=== PATIENT | male | born 1940 | race Caucasian/White ===

== ENCOUNTER → 2017-05-19 | Outpatient (CLI) | payer MEDICARE, BC, SELFPAY | PROVIDERS: Family Provider Emergency Medicine; Visit Provider Internal Medicine | DX: I20.8 Other forms of angina pectoris (principal); I10 Essential (primary) hypertension; Z01.818 Encounter for other preprocedural examination | CPT/HCPCS: 93306 ==

== ENCOUNTER → 2017-09-23 10:32 | Outpatient (CLI) | payer MEDICARE, SELFPAY ==
[2017-09-23 12:18] LABS: Calcium 8.6 mg/dL (8.5-10.1); Free T4 (Free Thyroxine) 1.22 ng/dl (0.76-1.46); Thyroid Stimulating Hormone 2.25 uIU/ml (0.358-3.740)
== END ==
PROVIDERS: Visit Provider Otolaryngology
DX: E04.1 Nontoxic single thyroid nodule (principal); E07.9 Disorder of thyroid, unspecified; R42 Dizziness and giddiness; H69.80 Other specified disorders of Eustachian tube, unspecified ear
CPT/HCPCS: 36415; 82310; 84439; 84443

== ENCOUNTER → 2017-10-03 09:01 | Outpatient (CLI) | payer MEDICARE, BC, SELFPAY ==
--- NOTE | 2017-10-03 09:04 | US_ITS ---
US thyroid HISTORY: Follow-up thyroid nodules ITS.REASON: thyroid nodule ORDERING PHYSICIAN: Mio Rios MD PATIENT AGE: 76 years COMPARISON: 09/23/2016 FINDINGS: The right lobe is 4 x 1.4 x 1.9 cm. There is an isoechoic nodule in the upper pole at 4 mm unchanged. The left lobe is 4.2 x 1.9 x 2.3 cm. In the upper pole there is a 8 not significantly changed. A 5 mm isoechoic nodule present in the upper pole as well. In the mid polar region there is a 2.5 x 1.3 cm isoechoic solid appearing nodule which is fairly well-circumscribed previously 2 x 1 cm. An additional 1.6 cm solid appearing isoechoic nodule present in the lower pole. This is not significant change. IMPRESSION: Multiple left-sided solid thyroid nodules one of which is slightly bigger measuring 2.5 x 1.3 cm. No change isoechoic 4 mm nodule in the right
--- NOTE | 2017-10-03 09:04 | US_ITS ---
US biopsy guidance HISTORY: Solid thyroid nodule on the left ITS.REASON: thyroid nodule ORDERING PHYSICIAN: Mio Rios MD PATIENT AGE: 76 years TECHNIQUE: Following obtaining informed consent, using aseptic technique and local anesthesia with buffered lidocaine, fine-needle aspiration was performed of the nodule of interest using sonographic guidance. 3 passes were made into the nodule with a 25-gauge needle. Specimen was given to cytology. The patient tolerated the procedure well without evidence of immediate complications and left the ultrasound suite in stable condition. CYTOLOGY:Pending IMPRESSION: Uneventfully fine-needle aspiration with thyroid gland on the left. Cytology pending
== END ==
PROVIDERS: PCP Emergency Medicine; Visit Provider Otolaryngology
DX: E04.1 Nontoxic single thyroid nodule (principal); R42 Dizziness and giddiness; E07.9 Disorder of thyroid, unspecified; H69.90 Unspecified Eustachian tube disorder, unspecified ear
CPT/HCPCS: 10022; 76536; 76942; 88173

== ENCOUNTER → 2018-09-18 17:42 | Outpatient (CLI) | payer MEDICARE, BC, SELFPAY ==
[2018-09-18 18:56] LABS: Alanine Aminotransferase 23 U/L (12-78); Albumin Level 4.1 gm/dL (3.4-5.0); Albumin/Globulin Ratio 1.2 (1.1-1.8); Alkaline Phosphatase 71 U/L (46-116); Anion Gap 15.2 mEq/L (5-15); Aspartate Amino Transferase 13 U/L (15-37); Bilirubin,Total 0.5 mg/dL (0.2-1.0); Blood Urea Nitrogen 19 mg/dL (7-18); Carbon Dioxide 28 mmol/L (21.0-32.0); Chloride 104 mmol/L (98-107); Creatinine,Serum 1.09 mg/dL (0.70-1.30); Estimated Glomerular Filt Rate 66 ml/min (>60); GFR (African American) 80 ML/MIN (>60); Globulin 3.4 gm/dl (1.3-3.2); Glucose 94 mg/dL (74-106); Potassium 4.2 mmoL/L (3.5-5.1); Sodium 143 mmol/L (136-145); Total Protein,Serum 7.5 gm/dL (6.4-8.2)
[2018-09-18 19:07] LABS: Basophils # 0.1 K/mm3 (0-0.2); Basophils % 1.2 % (0.1-2.0); Eosinophils # 0.1 K/mm3 (0.0-0.4); Eosinophils % 1.5 % (0.1-12.0); Hematocrit 46.3 % (42.0-52.0); Hemoglobin 15.7 g/dL (14.1-18.0); Lymphocytes # 2.8 K/mm3 (0.7-4.5); Lymphocytes % 44.6 % (10-50); Mean Corpuscular Hemoglobin 30.8 pg (27.0-31.2); Mean Corpuscular Volume 90.6 fl (80-94); Mean Platelet Volume 8.5 fl (7.4-10.4); Monocytes # 0.4 K/mm3 (0.1-1.0); Neutrophils # 2.9 K/mm3 (1.8-7.8); Neutrophils % 46.8 % (37.0-80.0); Platelet Count 231 K/mm3 (142-424); Red Blood Count 5.11 M/mm3 (4.60-6.20); Red Cell Distribution Width 13.9 % (11.5-17.5); White Blood Count 6.3 K/mm3 (4.8-10.8)
== END ==
PROVIDERS: Visit Provider Emergency Medicine
DX: R39.9 Unspecified symptoms and signs involving the genitourinary system (principal); I10 Essential (primary) hypertension; R31.9 Hematuria, unspecified
CPT/HCPCS: 80053; 85025; 87086

== ENCOUNTER → 2019-01-15 13:27 | Outpatient (CLI) | payer MEDICARE, BC, SELFPAY ==
[2019-01-15 18:14] LABS: Free T4 (Free Thyroxine) 1.26 ng/dl (0.76-1.46); Thyroid Stimulating Hormone 1.74 uIU/ml (0.358-3.740)
== END ==
PROVIDERS: PCP Emergency Medicine; Visit Provider Otolaryngology
DX: E04.1 Nontoxic single thyroid nodule (principal)
CPT/HCPCS: 36415; 84439; 84443

== ENCOUNTER → 2019-01-17 13:27 | Outpatient (CLI) | payer MEDICARE, BC, SELFPAY ==
[2019-01-17 14:29] LABS: Erythrocyte Sedimentation Rate 31 mm/hr (0-20)
== END ==
PROVIDERS: Visit Provider Emergency Medicine
DX: R42 Dizziness and giddiness (principal)
CPT/HCPCS: 85651

== ENCOUNTER → 2019-01-18 09:36 | Outpatient (CLI) | payer MEDICARE, BC, SELFPAY ==
--- NOTE | 2019-01-18 09:40 | US_ITS ---
PROCEDURE: US THYROID CLINICAL INDICATION: Follow-up thyroid nodule COMPARISON: THY US THYROID from 09/23/2016 THY US thyroid from 10/03/2017 FINDINGS: Right lobe: 4 x 1.3 x 1.9 cm. 2 mm isoechoic nodule mid polar region Left lobe: 5 x 2 x 2.2 cm. Five mm slightly hypoechoic nodule well-circumscribed upper pole slightly smaller. 2.4 x 1.6 cm solid-appearing isoechoic nodule in the lower pole unchanged considering the difference in the way that the nodule is measured. This may actually be 2 nodules combined Isthmus: Unremarkable Additional findings: IMPRESSION: No change enlarged left lobe of the thyroid gland with multiple nodules Dictated by: Tono Parkinson MD 01/18/2019 17:22 Signed by: <Electronically signed by Tono Parkinson MD in [place]> 01/18/2019 17:22
== END ==
PROVIDERS: PCP Emergency Medicine; Visit Provider Otolaryngology
DX: E04.1 Nontoxic single thyroid nodule (principal)
CPT/HCPCS: 76536

== ENCOUNTER → 2019-04-12 14:34 | Outpatient (CLI) | payer MEDICARE, BC, SELFPAY ==
--- NOTE | 2019-04-12 14:36 | US_ITS ---
PROCEDURE: US THYROID CLINICAL INDICATION: thyroid nodule Follow-up thyroid nodules COMPARISON: THY US THYROID from 09/23/2016 US THYROID from 01/18/2019 FINDINGS: Right lobe: 4.2 x 1.7 x 1.9 cm. 3 mm hypoechoic nodule mid polar region unchanged Left lobe: 4.8 x 2.2 x 2.5 cm. 8 x 5 mm. This nodule has been present dating back to 09/23/2016 is probably not significantly changed consider difference in scanning technique. There is a solid 2 cm nodule in the mid polar region not significantly changed. An additional hypoechoic 5 mm nodules present in the upper pole probably unchanged. Mixed nodule upper pole having cystic and solid component previously at 6 mm. Isthmus: Additional findings: IMPRESSION: No change in large left lobe of the thyroid gland with multiple nodules Dictated by: Tono Parkinson MD 04/12/2019 17:22 Electronically signed by Tono Parkinson MD in [place] 04/12/2019 17:22
[2019-04-12 16:30] LABS: Free T4 (Free Thyroxine) 1.25 ng/dl (0.76-1.46); Thyroid Stimulating Hormone 1.33 uIU/ml (0.358-3.740)
[2019-04-12 16:35] LABS: Prostate Specific Ag Screen 14.5 ng/mL (0.0-4.0)
== END ==
PROVIDERS: PCP Emergency Medicine; Visit Provider Otolaryngology
DX: E04.1 Nontoxic single thyroid nodule (principal)
CPT/HCPCS: 36415; 76536; 84439; 84443; G0103

== ENCOUNTER → 2019-04-12 15:36 | Outpatient (CLI) | payer MEDICARE, BC, SELFPAY | PROVIDERS: Visit Provider Emergency Medicine | DX: E04.1 Nontoxic single thyroid nodule (principal); E07.9 Disorder of thyroid, unspecified; R42 Dizziness and giddiness; Z12.5 Encounter for screening for malignant neoplasm of prostate | CPT/HCPCS: 36415; 76536; 84439; 84443; G0103 ==

== ENCOUNTER → 2019-10-01 12:46 | Outpatient (CLI) | payer MEDICARE, BC, SELFPAY ==
--- NOTE | 2019-10-01 12:52 | US_ITS ---
PROCEDURE: US THYROID CLINICAL INDICATION: thyroid nodule Follow-up thyroid nodules COMPARISON: THY US THYROID from 09/23/2016 US THYROID from 04/12/2019 FINDINGS: Right lobe: 3.9 x 1.2 x 1.8 cm. Mostly homogeneous echogenicity with an oval 5 2 mm isoechoic nodule in the upper pole unchanged. Left lobe: 4.9 x 2.5 x 2.9 cm. 6 mm isoechoic nodule upper pole previously 8 x 5 mm. Isoechoic 2.6 x 1.2 cm nodule in the lower pole unchanged.. Slightly hypoechoic mid polar region 7 x 4 mm. Unchanged Isthmus: Unremarkable Additional findings: IMPRESSION: No change bilateral thyroid nodules with dominant nodule on the left not significantly changed Dictated by: Toon Parkinson MD 10/01/2019 14:20 Electronically signed by Tono Parkinson MD in [place] 10/01/2019 14:20
== END ==
PROVIDERS: PCP Emergency Medicine; Visit Provider Otolaryngology
DX: E04.9 Nontoxic goiter, unspecified (principal)
CPT/HCPCS: 76536

== ENCOUNTER → 2019-10-04 13:48 | Outpatient (CLI) | payer MEDICARE, BC, SELFPAY ==
[2019-10-04 15:01] LABS: Free T4 (Free Thyroxine) 1.09 ng/dl (0.78-2.19)
[2019-10-04 15:17] LABS: Thyroid Stimulating Hormone 1.84 uIU/mL (0.465-4.68)
[2019-10-04 15:18] LABS: Prostate Specific Ag, Diagnost 13.3 ng/ml (0.0-4.0)
== END ==
PROVIDERS: Emergency Medicine; Visit Provider Otolaryngology
DX: E04.9 Nontoxic goiter, unspecified (principal); R97.20 Elevated prostate specific antigen [PSA]
CPT/HCPCS: 36415; 84153; 84439; 84443

== ENCOUNTER → 2020-03-26 12:23 | Outpatient (CLI) | payer MEDICARE, BC, SELFPAY ==
--- NOTE | 2020-03-26 12:33 | US_ITS ---
PROCEDURE: US THYROID CLINICAL INDICATION: nodule COMPARISON: US THY US THYROID from 09/23/2016 US US THYROID from 10/01/2019 FINDINGS: Right lobe: 4.2 x 1.3 x 2.1 cm. 4 mm hypoechoic nodule upper pole unchanged. Left lobe: 5.1 x 2 x 2.1 cm. 7 mm mostly isoechoic nodule upper pole unchanged. 5 mm slightly hypoechoic not per pole unchanged. 3 cm I so in slightly hyperechoic nodule lower pole not significantly changed. This is been stable since 09/23/2016. Isthmus: 3 mm in thickness Additional findings: IMPRESSION: Dominant left-sided nodule unchanged. Other nodules also unchanged. Dictated by: Tono Parkinson MD 03/26/2020 16:37 Tono Parkinson MD in [place] 03/26/2020 16:37
[2020-03-26 16:14] LABS: Free T4 (Free Thyroxine) 1.26 ng/dl (0.78-2.19)
[2020-03-26 16:28] LABS: Prostate Specific Ag, Diagnost 13.5 ng/ml (0.0-4.0)
[2020-03-26 16:28] LABS: Thyroid Stimulating Hormone 1.78 uIU/mL (0.465-4.68)
== END ==
PROVIDERS: PCP Emergency Medicine; Visit Provider Otolaryngology
DX: E04.1 Nontoxic single thyroid nodule (principal); R97.20 Elevated prostate specific antigen [PSA]
CPT/HCPCS: 36415; 76536; 84153; 84439; 84443

== ENCOUNTER → 2020-10-01 12:27 | Outpatient (CLI) | payer MEDICARE, BC, SELFPAY ==
[2020-10-01 14:00] LABS: Free T4 (Free Thyroxine) 1.16 ng/dl (0.78-2.19)
[2020-10-01 14:15] LABS: Prostate Specific Ag Screen 14.3 ng/ml (0.0-4.0)
[2020-10-01 14:24] LABS: Calcium 9.1 mg/dl (8.4-10.2)
[2020-10-03 10:50] LABS: Thyroid Peroxidase Antibodies 77 IU/mL (0-34)
[2020-10-05 09:08] LABS: Calcitonin 2.6 pg/mL (0.0-8.4)
[2020-10-08 10:34] LABS: Thyroid Stimulating Immunoglob <0.10 IU/L (0.00-0.55)
== END ==
PROVIDERS: Emergency Medicine; Visit Provider Otolaryngology
DX: E04.1 Nontoxic single thyroid nodule (principal); E04.9 Nontoxic goiter, unspecified; Z12.5 Encounter for screening for malignant neoplasm of prostate
CPT/HCPCS: 36415; 82308; 82310; 84439; 84445; 86376; G0103

== ENCOUNTER → 2021-04-06 13:17 | Outpatient (CLI) | payer MEDICARE, BC, SELFPAY | PROVIDERS: Visit Provider Emergency Medicine | DX: Z12.5 Encounter for screening for malignant neoplasm of prostate (principal) | CPT/HCPCS: 36415; G0103 ==

== ENCOUNTER → 2021-04-06 13:49 | Outpatient (CLI) | payer MEDICARE, BC, SELFPAY ==
--- NOTE | 2021-04-06 13:49 | US_ITS ---
PROCEDURE: US THYROID CLINICAL INDICATION: hx nodule COMPARISON: US BX US biopsy guidance from 10/03/2017 US US THYROID from 03/26/2020 FINDINGS: Right lobe: 4 x 1.4 x 1.3 cm. 4 mm mixed nodule upper pole benign-appearing unchanged Left lobe: 4.4 x 2.2 x 2.1 cm. 8 x 9 mm mixed nodule upper pole well-circumscribed wider than tall without calcifications unchanged. 6 mm mixed nodule upper pole unchanged. 2.6 x 1.9 by 2.3 cm heterogeneous nodule lower pole appears slightly smaller. This nodule was previously biopsied and was negative for malignancy consistent with benign goitrous follicular nodule. Isthmus: Unremarkable Additional findings: IMPRESSION: No change bilateral thyroid nodules. Dominant nodule on the left is unchanged. Dictated by: Tono Parkinson MD 04/06/2021 17:45 Tono Parkinson MD in [place] 04/06/2021 17:45
[2021-04-06 17:34] LABS: Prostate Specific Ag Screen 14.2 ng/ml (0.0-4.0)
[2021-04-06 18:47] LABS: Thyroid Stimulating Hormone 1.19 uIU/mL (0.465-4.68)
== END ==
PROVIDERS: PCP Emergency Medicine; Visit Provider Otolaryngology
DX: E04.9 Nontoxic goiter, unspecified (principal); Z12.5 Encounter for screening for malignant neoplasm of prostate
CPT/HCPCS: 36415; 76536; 84439; 84443; G0103

== ENCOUNTER → 2022-12-22 14:47 | Outpatient (CLI) | payer MEDICARE, BC, SELFPAY ==
[2022-12-22 15:40] LABS: Basophils # 0.1 K/mm3 (0-0.2); Basophils % 0.5 % (0.1-2.0); Eosinophils # 0.1 K/mm3 (0.0-0.4); Eosinophils % 0.6 % (0.1-12.0); Hematocrit 45.7 % (42.0-52.0); Hemoglobin 14.9 g/dL (14.1-18.0); Lymphocytes # 1.7 K/mm3 (0.7-4.5); Lymphocytes % 17.4 % (10-50); Mean Corpuscular HGB Conc 32.7 g/dL (31.8-35.4); Mean Corpuscular Hemoglobin 29.6 pg (27.0-31.2); Mean Corpuscular Volume 90.4 fl (80-94); Mean Platelet Volume 9.1 fl (7.4-10.4); Monocytes # 0.6 K/mm3 (0.1-1.0); Monocytes % 6.1 % (1.7-9.3); Neutrophils # 7.4 K/mm3 (1.8-7.8); Neutrophils % 75.4 % (37.0-80.0); Platelet Count 213 K/mm3 (142-424); Red Blood Count 5.06 M/mm3 (4.60-6.20); Red Cell Distribution Width 14.2 % (11.5-17.5); White Blood Count 9.8 K/mm3 (4.8-10.8)
[2022-12-22 15:54] LABS: Alanine Aminotransferase 20 U/L (12-78); Albumin Level 4.1 g/dl (3.5-5.0); Albumin/Globulin Ratio 1.4 (1.1-1.8); Alkaline Phosphatase 81 U/L (38-126); Aspartate Amino Transferase 25 U/L (17-59); Bilirubin,Total 1.6 mg/dl (0.2-1.3); Blood Urea Nitrogen 16 mg/dl (9-20); Carbon Dioxide 26 mmol/L (22.0-30.0); Chloride 101 mmol/L (98-107); Chol/HDL Ratio 5.9 (1-3.5); Cholesterol 176 mg/dl (140-200); Estimated Glomerular Filt Rate 72 ml/min (>60); GFR (African American) 87 ML/MIN (>60); Globulin 2.9 g/dL (1.3-3.2); Glucose 100 mg/dl (74-100); HDL Cholesterol 30 mg/dl (40-60); Sodium 138 mmol/L (136-145); Triglycerides 101 mg/dl (30-150); VLDL Cholesterol 20 mg/dL (0-40)
[2022-12-22 16:05] LABS: Direct LDL Cholesterol 113.64 mg/dL (100-129)
[2022-12-22 16:11] LABS: T4 (Thyroxine) 9.6 ug/dl (5.53-11.0)
[2022-12-22 16:12] LABS: 25-OH Vitamin D, Total 84.8 ng/mL (30-100)
[2022-12-22 16:25] LABS: Thyroid Stimulating Hormone 1.91 uIU/mL (0.465-4.68)
== END ==
PROVIDERS: PCP Emergency Medicine; Visit Provider Emergency Medicine
DX: I10 Essential (primary) hypertension (principal); I48.91 Unspecified atrial fibrillation; I50.20 Unspecified systolic (congestive) heart failure; R06.00 Dyspnea, unspecified; E55.9 Vitamin D deficiency, unspecified; Z12.5 Encounter for screening for malignant neoplasm of prostate; E07.9 Disorder of thyroid, unspecified
CPT/HCPCS: 80053; 80061; 82306; 84436; 84443; 85025; 93270; G0103

== ENCOUNTER 2022-12-25 21:09 | Emergency (ER) | payer MEDICARE, BC, SELFPAY ==
[2022-12-25 21:19] VITALS: BP 144/102; PULSE 92; RESP 22; TEMP 37.1; O2SAT 97; BMI 25.5
--- NOTE | 2022-12-25 21:23 | XR_ITS ---
PROCEDURE INFORMATION: Exam: XR Chest Exam date and time: 12/25/2022 9:45 PM Age: 82 years old Clinical indication: Shortness of breath; Additional info: Shortness of air TECHNIQUE: Imaging protocol: Radiologic exam of the chest. Views: 1 view. COMPARISON: No relevant prior studies available. FINDINGS: Lungs: Underlying interstitial lung markings. No consolidation. Pleural spaces: Unremarkable. No pleural effusion. No pneumothorax. Heart/Mediastinum: Unremarkable. No cardiomegaly. Bones/joints: Unremarkable. IMPRESSION: No acute findings.
--- NOTE | 2022-12-25 21:23 | ECG_ITS ---
APPROVED REPORT Exam: Resting ECG HR:84 bpm ECG Measurements Heart Rate 84 AXES QRSd 116 QRS 16 QT 393 T 117 QTc 435 Conclusion ATRIAL FIBRILLATION MODERATE INTRAVENTRICULAR CONDUCTION DELAY [105+ ms QRS DURATION, 80+ ms Q/S IN V1/V2, NO Q AND 60+ ms R IN I/aVL/V5/V6] NONSPECIFIC ST & T-WAVE ABNORMALITY ABNORMAL ECG UNCONFIRMED REPORT Electronically signed by : Vega Palomares MD 12/26/2022 14:25:42
--- NOTE | 2022-12-25 21:29 | HMH.EDGENADL ---
Discharge Plan Disposition Patient Disposition: Left Against Medical Advice Condition: Fair Prescriptions Prescriptions: No Action ascorbic acid (vitamin C) 500 mg capsule 1,000 mg PO .six a day cholecalciferol (vitamin D3) 1,000 unit capsule 5,000 unit PO DAILY Metamucil (sugar) Powder 1 tbsp PO DAILY nereyda [id number] 333 mg-100 mg-33 mg-33 mg tablet [id number] mg tablet PO tamsulosin 0.4 mg capsule 0.4 mg PO DAILY Qty: 90 1RF amlodipine 2.5 mg tablet See Rx Instructions .ROUTE .COMPLEX Qty: 180 0RF Dose Instruction: Take 1 tablet by mouth twice daily Rx Instructions: Take 1 tablet by mouth twice daily carvedilol [Coreg] 25 mg tablet 50 mg PO BID Qty: 120 5RF Rx Instructions: must administer with a meal/food Referrals Follow up/Referrals: Fly Kimball MD [Primary Care Provider] - See instructions Activity Restrictions/Add. Instructions Additional Instructions/Restrictions: You were evaluated in the emergency department today. At this time, we believe that you are having a heart attack (NSTEMI.) We highly recommend that you be admitted to the hospital for further evaluation and management of this. You are at high risk of complications, such as cardiac arrhythmias and even . If you wish to be admitted, please come back, as we would be happy to take care of you. Please continue taking your beta-jonny (carvedilol) at home as prescribed. Follow-up at home with your remotely piloted vehicle controller as soon as possible if you do not choose to return to be admitted to the hospital. Clinical Impressions Clinical Impression: Acute non-ST elevation myocardial infarction (NSTEMI) Instructions Patient Instructions: DI for Heart Attack Discharge ED Provider: Cristina Mendez General Adult HPI General Chief complaint: Shortness of Breath/Dyspnea Stated complaint: soa Time Seen by Provider: 12/25/22 21:12 Mode of Arrival: Family Vehicle Source of Information: Patient Limitations: No Limitations Description of Symptoms (Recalled from ER Triage Doc. by RN): 82 yo male presents CC SOA w/exertion; recent visit to cards & had recorder monitor placed (2 week length), currently on day 3. States he was sitting at home and noticed he had trouble getting his breath, got hot and felt like his soa was actively worsening, so came in for eval. PMH: CHF, AFIB,decr EJF. Patient would like to make it clear he wants a chest xray today. History of Present Illness HPI narrative: This patient is an 82-year-old male who has a history of atrial fibrillation on carvedilol and amlodipine, CHF, hypertension, and thyroid disease presenting to the emergency department for evaluation with concern for chest tightness and shortness of breath. He states it has been going on for a few weeks. He was seen by cardiology several days ago on medical record review, at which point he was placed on a Holter monitor. He has been wearing this for 3 days now. He states that though he has been having dyspnea on exertion for weeks now, he acutely felt like his symptoms were worsening just prior to arrival. He felt super hot, and he got severe chest tightness. He felt like his heart was compressed. Given this, he decided to come in for evaluation. His symptoms have somewhat improved upon arrival. Related Data Home Medications Medication Instructions Recorded Confirmed ascorbic acid (vitamin C) 500 mg 1,000 mg PO .six a day 09/18/18 12/22/22 capsule cholecalciferol (vitamin D3) 25 5,000 unit PO DAILY 09/18/18 12/22/22 mcg (1,000 unit) capsule saw tab PO 09/18/18 12/22/22 [id number] 333 mg-100 mg-33 mg-33 mg tablet psyllium seed (sugar) oral powder 1 tbsp PO DAILY 12/22/22 12/22/22 (Metamucil (sugar) oral powder) Previous Rx's Medication Instructions Recorded tamsulosin 0.4 mg capsule 0.4 mg PO DAILY #90 caps 06/17/21 amlodipine 2.5 mg tablet
[2022-12-25 21:55] LABS: Basophils # 0.1 K/mm3 (0-0.2); Basophils % 0.9 % (0.1-2.0); Eosinophils # 0.3 K/mm3 (0.0-0.4); Eosinophils % 3.6 % (0.1-12.0); Hematocrit 42.6 % (42.0-52.0); Hemoglobin 14.1 g/dL (14.1-18.0); Lymphocytes # 2.2 K/mm3 (0.7-4.5); Lymphocytes % 25.8 % (10-50); Mean Corpuscular Hemoglobin 29.9 pg (27.0-31.2); Mean Corpuscular Volume 90.5 fl (80-94); Mean Platelet Volume 8.5 fl (7.4-10.4); Monocytes # 0.5 K/mm3 (0.1-1.0); Monocytes % 6.2 % (1.7-9.3); Neutrophils # 5.5 K/mm3 (1.8-7.8); Neutrophils % 63.5 % (37.0-80.0); Platelet Count 272 K/mm3 (142-424); Red Blood Count 4.71 M/mm3 (4.60-6.20); Red Cell Distribution Width 14.2 % (11.5-17.5); White Blood Count 8.7 K/mm3 (4.8-10.8)
[2022-12-25 22:24] LABS: Alanine Aminotransferase 22 U/L (12-78); Albumin/Globulin Ratio 1.3 (1.1-1.8); Alkaline Phosphatase 76 U/L (38-126); Anion Gap 13.3 mEq/L (5-15); Aspartate Amino Transferase 30 U/L (17-59); Bilirubin,Total 0.4 mg/dl (0.2-1.3); Blood Urea Nitrogen 19 mg/dl (9-20); Calcium 8.6 mg/dl (8.4-10.2); Carbon Dioxide 25 mmol/L (22.0-30.0); Chloride 103 mmol/L (98-107); Creatinine Clearance Estimated 61 mL/min (50-200); Estimated Glomerular Filt Rate 64 ml/min (>60); GFR (African American) 78 ML/MIN (>60); Globulin 3.2 g/dL (1.3-3.2); Glucose 109 mg/dl (74-100); Potassium 4.3 mmoL/L (3.5-5.1); Sodium 137 mmol/L (136-145); Total Protein,Serum 7.2 g/dl (6.3-8.2)
[2022-12-25 22:36] LABS: NT Pro Brain Natriuretic Pep. 6960 pg/mL (0-450)
--- NOTE | 2022-12-25 22:37 | PC.NURSE ---
critical trop 0.92 reported to
[2022-12-25 22:39] LABS: Troponin I 0.92 ng/ml (0.00-0.034)
--- NOTE | 2022-12-25 23:11 | PC.NURSE ---
PATIENT ADMITTED OBSERVATION TO [address] [facility] DX OF GISELA, UTI, AND FECAL IMPACTION.
--- NOTE | 2022-12-25 23:20 | PC.NURSE ---
on the phone with Dr. York
--- NOTE | 2022-12-25 23:24 | PC.NURSE ---
Dr. York advised physician to page Dr. Hoyt
--- NOTE | 2022-12-25 23:25 | PC.NURSE ---
on the phone with Dr. Hoyt
[2022-12-25 23:56] VITALS: BP 139/91; PULSE 100; RESP 16; TEMP 36.6; O2SAT 98
--- NOTE | 2022-12-26 16:41 | PC.NURSE ---
pt called at this time requesting to know if her could get prescription for aspirin, states went it was given to him lastnight he felt some better . Stated to pt that pt should check with his pcp or plant supervisor if he has one prior to starting an aspirin regimen. Then looked up pts chart while on the phone with pt , noted that pt left ama lastnight with diagnosis of NSTEMI. pt reports Dr. Foster its pts plant supervisor, asked if she should get ahold of him today, sated to her that Dr. Hoyt who is in the same office is control operator for cardiology and we can have him paged through the chisel mortiser operator for them. Pt declined states they will wait and call Dr. Foster tomorrow. notified ER MD Bonilla who is the ER doctor at the time of this phone call.
== END 2022-12-26 00:03 | disposition left against medical advice (07) ==
PROVIDERS: Emergency Provider Emergency Medicine; PCP Emergency Medicine
DX: I21.4 Non-ST elevation (NSTEMI) myocardial infarction (principal); I48.91 Unspecified atrial fibrillation; I11.0 Hypertensive heart disease with heart failure; I50.9 Heart failure, unspecified; Z87.891 Personal history of nicotine dependence
CPT/HCPCS: 71045; 80053; 83880; 84484; 85025; 93005; 99285

== ENCOUNTER 2022-12-27 00:19 | Inpatient (IN) | payer MEDICARE, BC, SELFPAY ==
[2022-12-27] VITALS (19 sets, daily range): BP systolic 106–150; BP diastolic 56–97; PULSE 50–90; RESP 14–36; TEMP 36.2–37.1; O2SAT 93–98; BMI 25.5; BMI 25.4
--- NOTE | 2022-12-27 00:25 | ECG_ITS ---
APPROVED REPORT Exam: Resting ECG HR:88 bpm ECG Measurements Heart Rate 88 AXES QRSd 102 QRS 12 QT 359 T 152 QTc [address] DEVIATION AND MODERATE T-WAVE ABNORMALITY, CONSIDER LATERAL ISCHEMIA [-0.1+ mV T-WAVE IN I/aVL/V5/V6] ABNORMAL ECG UNCONFIRMED REPORT Electronically signed by : Vega Palomares MD 12/27/2022 19:50:30
--- NOTE | 2022-12-27 00:35 | PC.NURSE ---
324 Aspirin scanned, pt states he took 4 baby aspirin at home at 2100
[2022-12-27 00:37] LABS: Basophils # 0.1 K/mm3 (0-0.2); Basophils % 0.5 % (0.1-2.0); Eosinophils # 0.2 K/mm3 (0.0-0.4); Eosinophils % 1.8 % (0.1-12.0); Hematocrit 45.1 % (42.0-52.0); Hemoglobin 14.4 g/dL (14.1-18.0); Lymphocytes # 1.9 K/mm3 (0.7-4.5); Lymphocytes % 16.5 % (10-50); Mean Corpuscular HGB Conc 31.9 g/dL (31.8-35.4); Mean Corpuscular Hemoglobin 29.2 pg (27.0-31.2); Mean Corpuscular Volume 91.6 fl (80-94); Mean Platelet Volume 7.9 fl (7.4-10.4); Monocytes # 0.6 K/mm3 (0.1-1.0); Monocytes % 5.1 % (1.7-9.3); Neutrophils # 8.9 K/mm3 (1.8-7.8); Platelet Count 280 K/mm3 (142-424); Red Blood Count 4.93 M/mm3 (4.60-6.20); Red Cell Distribution Width 13.9 % (11.5-17.5); White Blood Count 11.6 K/mm3 (4.8-10.8)
[2022-12-27 00:40] LABS: Chloride 100 mmol/L (98-107); Sodium 134 mmol/L (136-145)
[2022-12-27 00:41] LABS: Potassium 4.7 mmoL/L (3.5-5.1)
[2022-12-27 00:43] LABS: Alanine Aminotransferase 26 U/L (12-78); Albumin Level 4.1 g/dl (3.5-5.0); Albumin/Globulin Ratio 1.2 (1.1-1.8); Alkaline Phosphatase 72 U/L (38-126); Anion Gap 11.7 mEq/L (5-15); Aspartate Amino Transferase 34 U/L (17-59); Bilirubin,Total 0.9 mg/dl (0.2-1.3); Blood Urea Nitrogen 19 mg/dl (9-20); Carbon Dioxide 27 mmol/L (22.0-30.0); Creatinine Clearance Estimated 61 mL/min (50-200); Estimated Glomerular Filt Rate 64 ml/min (>60); GFR (African American) 78 ML/MIN (>60); Globulin 3.3 g/dL (1.3-3.2); Total Protein,Serum 7.4 g/dl (6.3-8.2)
[2022-12-27 00:44] LABS: Calcium 9.1 mg/dl (8.4-10.2); Glucose 126 mg/dl (74-100)
--- NOTE | 2022-12-27 00:47 | XR_ITS ---
PROCEDURE INFORMATION: Exam: XR Chest Exam date and time: 12/27/2022 12:45 AM Age: 82 years old Clinical indication: Shortness of breath; Additional info: SOA TECHNIQUE: Imaging protocol: Radiologic exam of the chest. Views: 1 view. COMPARISON: CR XR CHEST PORTABLE 25/12/2022 21:45 FINDINGS: Lungs: Increased reticular opacities in the mid to lower lungs. Stigmata of old granulomatous disease. Right apical scarring. Pleural spaces: Unremarkable. No pleural effusion. No pneumothorax. Heart/Mediastinum: Borderline cardiomegaly. Vasculature: Vascular calcifications. Bones/joints: Unremarkable. IMPRESSION: Increased reticular opacities in the mid to lower lungs. This could be atypical infection or cardiogenic edema.
[2022-12-27 00:53] LABS: NT Pro Brain Natriuretic Pep. 13000 pg/mL (0-450)
[2022-12-27 00:59] LABS: Troponin I 0.86 ng/ml (0.00-0.034)
--- NOTE | 2022-12-27 01:04 | HMH.EDGENADL ---
Discharge Plan Disposition Chief Complaint: Shortness of Breath/Dyspnea Prescriptions Prescriptions: No Action ascorbic acid (vitamin C) 500 mg capsule 1,000 mg PO .six a day cholecalciferol (vitamin D3) 1,000 unit capsule 5,000 unit PO DAILY Metamucil (sugar) Powder 1 tbsp PO DAILY carvedilol [Coreg] 25 mg tablet 50 mg PO BID Rx Instructions: must administer with a meal/food amlodipine 2.5 mg tablet See Rx Instructions .ROUTE .COMPLEX Rx Instructions: Take 1 tablet by mouth twice daily tamsulosin 0.4 mg capsule 0.4 mg PO DAILY Referrals Follow up/Referrals: Fly Kimball MD [Primary Care Provider] - See instructions Discharge ED Provider: Karl Nice General Adult HPI General Chief complaint: Shortness of Breath/Dyspnea Stated complaint: Fast Heart rate Time Seen by Provider: 12/27/22 00:27 Mode of Arrival: Ambulatory Source of Information: Patient and Spouse Limitations: No Limitations Description of Symptoms (Recalled from ER Triage Doc. by RN): pt presents SOA, abdominal breathing and diaphoretic. pt c/o of SOA but denies chest pain. pt was seen yesterday here in the ED. pt left AMA and refused to be admitted. Dr. Foster has put him on a heart monitor that is to be worn x2wks from December 22 History of Present Illness HPI narrative: 82-year-old male history of hypertension, A-fib, heart failure presents with worsening shortness of breath. Patient was seen yesterday in the ED and was noted to have an NSTEMI with a troponin of 0.9. Patient left AMA at that time. He reports that at home he has been unable to get out of bed due to dyspnea, has been continuing to feel worse. Now audibly wheezing. Reports no fever chills or infectious symptoms. Related Data Home Medications Medication Instructions Recorded Confirmed ascorbic acid (vitamin C) 500 mg 1,000 mg PO .six a day Coronary 09/18/18 12/27/22 capsule Artery Disease cholecalciferol (vitamin D3) 25 5,000 unit PO DAILY vit d def 09/18/18 12/27/22 mcg (1,000 unit) capsule psyllium seed (sugar) oral powder 1 tbsp PO DAILY unknown 12/22/22 12/27/22 (Metamucil (sugar) oral powder) amlodipine 2.5 mg tablet See Rx Instructions .Route 12/27/22 12/27/22 .COMPLEX Coronary Artery Disease carvedilol 25 mg tablet (Coreg) 50 mg PO BID Coronary Artery 12/27/22 12/27/22 Disease tamsulosin 0.4 mg capsule 0.4 mg PO DAILY prostate 12/27/22 12/27/22 Allergies Allergy/AdvReac Type Severity Reaction Status Date / Time meloxicam [MELOXICAM] Allergy Intermediate I-RASH Verified 12/22/22 13:59 naproxen Allergy Unknown Verified 12/22/22 13:59 bisoprolol AdvReac Mild Palpitation Verified 12/22/22 13:59 s metoprolol AdvReac Palpitation Verified 12/22/22 13:59 s [facility] Disclaimer: The information contained in this section may have been updated after the patient was seen, as this information can be updated by other users. Medical History Atrial fibrillation with rapid ventricular response Dyspnea Social History Smoking Status: Never smoker alcohol intake: never counseling provided: none substance use type: denies use current occupational status: employed Travel in the last 8 weeks: None household members: spouse housing: house ROS Obtained: Yes All systems reviewed & no additional complaints except as documented Physical Exam General General appearance: alert and anxious Head Head exam: atraumatic and normocephalic Eye Eye exam: Present normal appearance, PERRL and EOMI ENT ENT exam: Present normal oropharynx and normal external ear exam Neck Neck exam: Present normal inspection and full ROM Chest Chest inspection: Present normal inspection and symmetric chest wall rise; Absent tenderness Respiratory Respiratory exam: Present wheezes and other (Rales bilaterally
--- NOTE | 2022-12-27 01:04 | PC.NURSE ---
RT in room with patient
--- NOTE | 2022-12-27 01:09 | PC.NURSE ---
Cardiology paged for ED MD
--- NOTE | 2022-12-27 01:10 | PC.NURSE ---
Dr. Nice on phone with Dr. Hoyt
[2022-12-27 01:11] LABS: T4 (Thyroxine) 11.3 ug/dl (5.53-11.0)
--- NOTE | 2022-12-27 01:14 | PC.NURSE ---
production supervisor trainee notified of need for room
--- NOTE | 2022-12-27 01:14 | PC.NURSE ---
ED MD on phone with hospitalist
[2022-12-27 01:25] LABS: Thyroid Stimulating Hormone 1.45 uIU/mL (0.465-4.68)
--- NOTE | 2022-12-27 01:26 | PC.NURSE ---
PATIENT ADMITTED TO [address] SERV[address] OF [address] ROBERTS WITH ADMITTING DX OF NSTEMI AND CHF.
--- NOTE | 2022-12-27 01:53 | EXP.HP ---
History of Present Illness *Admission Date: 12/27/22 *Reason for visit:: NSTEMI *History of present illness: This is a 82-year-old male with PMHx of hypertension, A-fib, heart failure who presented with worsening shortness of breath. Patient was seen yesterday in the ED and was noted to have an NSTEMI with a troponin of 0.9. Patient left AMA at that time. He reports that at home he has been unable to get out of bed due to dyspnea, has been continuing to feel worse. Now audibly wheezing. Reports no fever chills or infectious symptoms. patient returned to ER. admitted for further management. [facility] Disclaimer: The information contained in this section may have been updated after the patient was seen, as this information can be updated by other users. Medical History Atrial fibrillation with rapid ventricular response Dyspnea Social History Smoking Status: Never smoker alcohol intake: never counseling provided: none substance use type: denies use current occupational status: employed Travel in the last 8 weeks: None household members: spouse housing: house Review of Systems Review of Systems Review of systems:: pertinent systems reviewed and negative unless documented below Meds Home Medications and Allergies Home Medications Medication Instructions Recorded Confirmed Type ascorbic acid (vitamin C) 500 mg 1,000 mg PO DAILY Supplement 09/18/18 12/27/22 History capsule cholecalciferol (vitamin D3) 25 5,000 unit PO DAILY Supplement 09/18/18 12/27/22 History mcg (1,000 unit) capsule psyllium seed (sugar) oral powder 1 tbsp PO DAILY PRN Constipation 12/22/22 12/27/22 History (Metamucil (sugar) oral powder) amlodipine 2.5 mg tablet 2.5 mg PO BID High Blood Pressure 12/27/22 12/27/22 History carvedilol 25 mg tablet (Coreg) 25 mg PO BID High Blood Pressure 12/27/22 12/27/22 History tamsulosin 0.4 mg capsule 0.4 mg PO DAILY prostate 12/27/22 12/27/22 History New Prescriptions to Start Prescriptions: Allergies Allergy/AdvReac Type Severity Reaction Status Date / Time meloxicam [MELOXICAM] Allergy Intermediate I-RASH Verified 12/22/22 13:59 naproxen Allergy Unknown Verified 12/22/22 13:59 bisoprolol AdvReac Mild Palpitation Verified 12/22/22 13:59 s metoprolol AdvReac Palpitation Verified 12/22/22 13:59 s Exam Data for Last 24 hours Vital signs and Labs for Last 24 Hours: Temp Pulse Resp BP Pulse Ox O2 Del Method 97.6 F 72 36 H 140/97 H 93 L Room Air 12/27/22 00:28 12/27/22 00:28 12/27/22 00:28 12/27/22 00:28 12/27/22 00:28 12/27/22 00:28 Laboratory Results - last 24 hr 12/27/22 00:30: WBC 11.6 H D, RBC 4.93, Hgb 14.4, Hct 45.1, MCV 91.6, MCH 29.2, MCHC 31.9, RDW 13.9, Plt Count 280, MPV 7.9, Neut % (Auto) 76.0, Lymph % (Auto) 16.5, [place] % (Auto) 5.1, Eos % (Auto) 1.8, Baso % (Auto) 0.5, Neut # (Auto) 8.9 H, Lymph # (Auto) 1.9, [place] # (Auto) 0.6, Eos # (Auto) 0.2, Baso # (Auto) 0.1, Sodium 134 L, Potassium 4.7, Chloride 100, Carbon Dioxide 27, Anion Gap 11.7, BUN 19, Creatinine 1.10, Estimated Creat Clear 61, Estimated GFR 64, Est GFR ( Amer) 78, Glucose 126 H, Calcium 9.1, Total Bilirubin 0.9, AST 34, ALT 26, Alkaline Phosphatase 72, Troponin I 0.86 H, NT-Pro-B Natriuret Pep 51926 H, Total Protein 7.4, Albumin 4.1, Globulin 3.3 H, Albumin/Globulin Ratio 1.2, TSH 1.45, Thyroxine (T4) 11.3 H I & O for Last 24 hours: Intake & Output 12/24/22 12/25/22 12/26/22 12/27/22 23:59 23:59 23:59 23:59 Weight 80.739 kg Constitutional Constitutional: moderate distress *Routine HEENT Exam Head: Present normocephalic and atraumatic Eye: Present EOMI, PERRL and normal accommodation ENT: Present mucous membranes moist *Routine Neck Exam Neck: Present supple, full ROM and trachea midline *Routine Respiratory Exam Respiratory: Present prolonged expir
--- NOTE | 2022-12-27 02:05 | PC.NURSE ---
received report at 0155 from Luzma RN/ED nurse. 82 yo male admitting diagnosis: NSTEMI, CHF, Afib. to transfer per stretcher.
--- NOTE | 2022-12-27 02:11 | PC.NURSE ---
pt arrived to floor at this time
--- NOTE | 2022-12-27 02:22 | PC.NURSE ---
0210 arrived to the floor at 0210 via stretcher and admitted to room 209.
[2022-12-27 02:52] LABS: ABG Base Excess -2.6 mmol/L (-2.4-2.3); ABG HCO3 21.4 mmhg (22.0-26.0); ABG Oxygen Saturation 94 % (90-100); ABG PCO2 31.3 mmhg (35.0-45.0); ABG PH 7.45 mmol/L (7.35-7.45); ABG PO2 67.3 mmhg (80-100); ABG TCO2 22.3 mmhg (23-27)
[2022-12-27 02:53] LABS: Allen's Test Y; Oxygen RA %; Source Right Radial
--- NOTE | 2022-12-27 03:45 | PC.NURSE ---
CRITICAL TROPONIN CALLED TO LUNA Hernandez NP. TROPONIN 0.8.
--- NOTE | 2022-12-27 05:40 | PC.NURSE ---
PATIENT HAS NOT HAD ANY CHEST PAIN SINCE ADMISSION. SOA WITH EXERTION. 02 AT 2LNC. 02 [id number] AFIB [id number] RATE NOTED ON TELE. SPOUSE AT BEDSIDE.
--- NOTE | 2022-12-27 07:43 | HMH.PHAINT1 ---
Pharmacy Intervention Comments: Home medications were verified with the patient's and external history resource. -Juanjo Street, PharmD student
--- NOTE | 2022-12-27 08:48 | CA_ITS ---
APPROVED REPORT EXAM: Comprehensive 2D, Doppler, and color-flow Echocardiogram Production Bow Maker: Carlota Goodwin CRT Ht: 5 ft 10 in Wt: 177lbs BSA: 1.98 BP: 140/97 mmHg Indications: Shortness of Breath, Atrial Fibrillation, Hypertension/HDD 2D Dimensions LVOT 1.69 cm (M/F) 1.5-2.5 M-Mode Dimensions RVDd 2.12 cm (0.9-2.6) LA Diam 4.24 cm (1.9-4.0) LVDd 5.31 cm (3.5-5.7) Ao Diam 3.31 cm (2.0-3.7) LVDs 5.06 cm (3.5-5.7) IVSd 1.36 cm (0.6-1.1) PWd 0.75 cm (0.6-1.1) EF (Teich) 10.50% FS 4.70% EDV (Teich) 135.90 mL TAPSE 1.53 (<1.7) ESV (Teich) 121.60 mL LV Diastology E Decel Time 153.00 (160-240 msec) E/A Ratio 8.91 MED E' 4.70 (< 7 cm/sec) E'/MED E' Ratio 17.26 (>14) LAT E' 6.50 (<10 cm/sec) E/LAT E' Ratio 12.48 (>14) Aortic Valve AI PHT 440.00 ms Mitral Valve MV E Max Paul. 81.00 (40-130 cm/s) MV A Velocity 9.00 (40-130 cm/s) E/A Ratio 8.91 MV Decel. Time 153.00 (160-240 ms) MV PHT 45.00 ms Left Ventricle The left ventricle is normal size. Left ventricular systolic function is severely decreased. There is increased LV wall thickness. There is severe global hypokinesis of the left ventricle. The basal inferior and inferoseptal LV wall appears near-akinetic. LVEF is 20%. Right Ventricle The right ventricle is normal size. The right ventricular systolic function is normal. Atria The left atrium size is normal. The right atrium size is normal. Aortic Valve The aortic valve is not well visualized. There is no aortic valvular stenosis. Mild aortic regurgitation. Mitral Valve The mitral valve is mildly thickened. No evidence of mitral valve stenosis. Trace mitral regurgitation. Tricuspid Valve The tricuspid valve leaflets are thin and pliable. Trace tricuspid regurgitation. The TR jet is insufficient to estimate RVSP. Pulmonic Valve The pulmonary valve is grossly normal in structure. Trace pulmonic regurgitation. Great Vessels The aortic root is not well visualized. The ascending aorta is not well visualized. The IVC is not well visualized. Pericardium There is no pericardial effusion. Other Information Study Quality: Technically Difficult. Technically limited study due to poor accoustic windows. Conclusion Technically difficult study. There is severe reduction in LV systolic function. Grade II diastolic dysfunction. Mild AI The patient was noted to be in atrial fibrillation during the aquisition of the study images. Electronically signed by : Kristin Schroeder, 12/27/2022 18:53:43
--- NOTE | 2022-12-27 09:39 | EXP.CARD.CON ---
History of Present Illness History of Present Illness Consult date: 12/27/22 Requesting physician: Kyle Mercer Consult reason: shortness of breath Chief complaint: Shortness of breath History of present illness: 82-year-old male with past medical history of chronic afib not on oac due to patient refusing and chronic systolic heart failure with a known EF of 40% presented to emergency department with complaints of worsening shortness of air. Patient reports ongoing shortness of air increasing in severity over the last week. Patient was also recently in the emergency department and was noted to have a troponin of 0.9 but left hospital AMA. Patient denies history of chest pain. EKG upon presentation to ER showed A-fib with a rate of 88, ST deviation and moderate T wave abnormality with no change from previous EKG documented in cardiology office. Labs as follow: WBC 11.6, hemoglobin 14.4, hematocrit 45.1, sodium 134, potassium 4.7, creatinine 1.1, troponin 0.8 and proBNP greater than 13,000. Chest x-ray was concerning for edema. Patient was started on BiPAP and given Lasix 80 mg x 1 in emergency department. Patient reports shortness of air has improved. Patient was admitted for cardiology evaluation. Preliminary echo is pending. [facility] Disclaimer: The information contained in this section may have been updated after the patient was seen, as this information can be updated by other users. Medical History Atrial fibrillation with rapid ventricular response Dyspnea Social History Smoking Status: Never smoker alcohol intake: never counseling provided: none substance use type: denies use current occupational status: employed Travel in the last 8 weeks: None household members: spouse housing: house Review of Systems Review of Systems Review of systems:: pertinent systems reviewed and negative unless documented below *Cardiovascular Cardiovascular: Denies chest pain and Reports dyspnea *Respiratory Respiratory: Reports dyspnea Exam Data for Last 24 hours Vital signs and Labs for Last 24 Hours: Temp Pulse Resp BP Pulse Ox O2 Del Method O2 Flow Rate 97.6 F 58 L 17 141/85 H 97 Nasal Cannula 2 12/27/22 07:23 12/27/22 07:23 12/27/22 07:23 12/27/22 07:23 12/27/22 07:23 08:15 12/27/22 08:15 FiO2 30 12/27/22 01:58 Laboratory Results - last 24 hr 12/27/22 00:30: WBC 11.6 H D, RBC 4.93, Hgb 14.4, Hct 45.1, MCV 91.6, MCH 29.2, MCHC 31.9, RDW 13.9, Plt Count 280, MPV 7.9, Neut % (Auto) 76.0, Lymph % (Auto) 16.5, [place] % (Auto) 5.1, Eos % (Auto) 1.8, Baso % (Auto) 0.5, Neut # (Auto) 8.9 H, Lymph # (Auto) 1.9, [place] # (Auto) 0.6, Eos # (Auto) 0.2, Baso # (Auto) 0.1, Sodium 134 L, Potassium 4.7, Chloride 100, Carbon Dioxide 27, Anion Gap 11.7, BUN 19, Creatinine 1.10, Estimated Creat Clear 61, Estimated GFR 64, Est GFR ( Amer) 78, Glucose 126 H, Calcium 9.1, Total Bilirubin 0.9, AST 34, ALT 26, Alkaline Phosphatase 72, Troponin I 0.86 H, NT-Pro-B Natriuret Pep 31014 H, Total Protein 7.4, Albumin 4.1, Globulin 3.3 H, Albumin/Globulin Ratio 1.2, TSH 1.45, Thyroxine (T4) 11.3 H 12/27/22 01:56: Specimen Source Right radial, O2 % Ra, ABG pH 7.45, ABG pCO2 31.3 L, ABG pO2 67.3 L, ABG HCO3 21.4 L, ABG Total CO2 22.3 L, ABG O2 Saturation 94, ABG Base Excess -2.6 L, Tono Test Y 12/27/22 03:00: Troponin I 0.80 H I & O for Last 24 hours: Intake & Output 12/24/22 12/25/22 12/26/22 12/27/22 23:59 23:59 23:59 23:59 Intake Total 0 / 0 Output Total 2600 / 2600 Balance -2600 / -2600 Weight 177 lb 15.314 oz Constitutional Constitutional: no acute distress *Routine Respiratory Exam Respiratory: Present wheezes, crackles and symmetric chest movement *Routine Cardiovascular Exam Cardiovascular: Present Normal S1 and Normal S2 Comments: A-fib *Routine Abdominal Exam Abdominal: Present
--- NOTE | 2022-12-27 14:40 | PC.NURSE ---
PT IS RESTING IN BED. ALERT AND ORIENTED X4. EATING AND DRINKING WELL. PT HAS AMBULATED TO THE BATHROOM WITH 1 ASSIST THIS SHIFT. PT CONTINUES TO BE SOA. O2 SATURATION HAS MAINTAINED 92-96% ON 2 L NC. LUNG SOUNDS HAVE SCATTERED WHEEZES WITH BILATERAL CRACKLES (BASES). ABDOMEN SOFT/NON TENDER WITH ACTIVE BOWEL SOUNDS. WILL CONTINUE TO MONITOR.
--- NOTE | 2022-12-27 15:50 | PC.NURSE ---
courtesy tech note: pt is lying in bed with family at BS
[2022-12-28] VITALS (10 sets, daily range): BP systolic 112–154; BP diastolic 62–69; PULSE 53–100; RESP 16–19; TEMP 36.6–36.9; O2SAT 93–98; BMI 25.4
--- NOTE | 2022-12-28 04:16 | PC.NURSE ---
NO ACUTE CHANGES THIS SHIFT. PT HAS RESTED WELL. NO COMPLAINTS THIS SHIFT. PT DID DESAT INTO THE MID 80'S ONCE THIS SHIFT. PT WAS WOKEN UP AND O2 UNTANGLED OUT FROM UNDER PT AND SATS CAME BACK UP. REMAINS A-FIB ON TELE.
[2022-12-28 06:59] LABS: Basophils # 0.1 K/mm3 (0-0.2); Basophils % 0.4 % (0.1-2.0); Eosinophils # 0.2 K/mm3 (0.0-0.4); Eosinophils % 1.2 % (0.1-12.0); Hematocrit 44.7 % (42.0-52.0); Hemoglobin 14.3 g/dL (14.1-18.0); Lymphocytes # 1.9 K/mm3 (0.7-4.5); Lymphocytes % 15.3 % (10-50); Mean Corpuscular HGB Conc 32.1 g/dL (31.8-35.4); Mean Corpuscular Hemoglobin 29.3 pg (27.0-31.2); Mean Corpuscular Volume 91.5 fl (80-94); Mean Platelet Volume 8.5 fl (7.4-10.4); Monocytes # 0.9 K/mm3 (0.1-1.0); Neutrophils # 9.6 K/mm3 (1.8-7.8); Neutrophils % 76.2 % (37.0-80.0); Platelet Count 264 K/mm3 (142-424); Red Blood Count 4.88 M/mm3 (4.60-6.20); Red Cell Distribution Width 14.3 % (11.5-17.5); White Blood Count 12.7 K/mm3 (4.8-10.8)
[2022-12-28 07:08] LABS: Chloride 98 mmol/L (98-107); Potassium 3.2 mmoL/L (3.5-5.1); Sodium 134 mmol/L (136-145)
[2022-12-28 07:10] LABS: Alanine Aminotransferase 38 U/L (12-78); Aspartate Amino Transferase 36 U/L (17-59); Blood Urea Nitrogen 32 mg/dl (9-20); Creatinine Clearance Estimated 48 mL/min (50-200); Estimated Glomerular Filt Rate 49 ml/min (>60); GFR (African American) 59 ML/MIN (>60)
[2022-12-28 07:11] LABS: Albumin Level 3.4 g/dl (3.5-5.0); Albumin/Globulin Ratio 1.1 (1.1-1.8); Alkaline Phosphatase 69 U/L (38-126); Anion Gap 10.2 mEq/L (5-15); Calcium 8.7 mg/dl (8.4-10.2); Carbon Dioxide 29 mmol/L (22.0-30.0); Globulin 3.1 g/dL (1.3-3.2); Glucose 96 mg/dl (74-100); Total Protein,Serum 6.5 g/dl (6.3-8.2)
--- NOTE | 2022-12-28 08:06 | EXP.PN ---
Subjective *Date: 12/28/22 *Time: 18:16 Interval history: No acute events overnight. is at bedside and is concerned that the patient is much more confused than usual. He denies pain or shortness of breath. Exam Data for Last 24 hours Vital signs and Labs for Last 24 Hours: Temp Pulse Resp BP Pulse Ox O2 Del Method O2 Flow Rate 97.8 F 53 L 19 112/65 93 L Room Air 3 12/28/22 07:56 12/28/22 07:56 12/28/22 07:56 12/28/22 07:56 12/28/22 07:56 12/28/22 07:56 12/28/22 06:44 FiO2 30 12/27/22 01:58 Laboratory Results - last 24 hr 12/28/22 06:26: WBC 12.7 H, RBC 4.88, Hgb 14.3, Hct 44.7, MCV 91.5, MCH 29.3, MCHC 32.1, RDW 14.3, Plt Count 264, MPV 8.5, Neut % (Auto) 76.2, Lymph % (Auto) 15.3, [place] % (Auto) 7.0, Eos % (Auto) 1.2, Baso % (Auto) 0.4, Neut # (Auto) 9.6 H, Lymph # (Auto) 1.9, [place] # (Auto) 0.9, Eos # (Auto) 0.2, Baso # (Auto) 0.1, Sodium 134 L, Potassium 3.2 L D, Chloride 98, Carbon Dioxide 29, Anion Gap 10.2, BUN 32 H D, Creatinine 1.40 H D, Estimated Creat Clear 48, Estimated GFR 49 L, Est GFR ( Amer) 59 D, Glucose 96, Calcium 8.7, Magnesium 2.0, Total Bilirubin 1.0, AST 36, ALT 38 D, Alkaline Phosphatase 69, Total Protein 6.5, Albumin 3.4 L D, Globulin 3.1, Albumin/Globulin Ratio 1.1 I & O for Last 24 hours: Intake & Output 12/25/22 12/26/22 12/27/22 12/28/22 23:59 23:59 23:59 23:59 Intake Total 240 / 240 0 / 0 Output Total 3375 / 3375 350 / 350 Balance -3135 / -3135 -350 / -350 Weight 80.72 kg 80.72 kg Constitutional Constitutional: no acute distress *Routine HEENT Exam Head: Present normocephalic Eye: Present EOMI and PERRL ENT: Present mucous membranes moist *Routine Neck Exam Neck: Present supple; Absent lymphadenopathy *Routine Respiratory Exam Respiratory: Present CTA bilaterally *Routine Cardiovascular Exam Cardiovascular: Present RRR *Routine Abdominal Exam Abdominal: Present soft and normoactive bowel sounds; Absent tenderness *Routine Extremities Exam Extremities: Absent cyanosis, clubbing or edema *Routine Skin Exam Skin: Present warm; Absent rash *Routine Neurological Exam Neurological: Present alert and moving all extremities Assessment and Plan *Assessment and plan (1) Acute non-ST elevation myocardial infarction (NSTEMI): Status: Acute Category: Medical Code(s): I21.4 - Non-ST elevation (NSTEMI) myocardial infarction (2) Dyspnea: Status: Acute Qualifiers: Dyspnea type: acute respiratory distress Qualified Code(s): R06.03 - Acute respiratory distress Category: Medical Code(s): R06.00 - Dyspnea, unspecified (3) Systolic heart failure: Status: Acute Qualifiers: Heart failure chronicity: acute on chronic Qualified Code(s): I50.23 - Acute on chronic systolic (congestive) heart failure Category: Medical Code(s): I50.20 - Unspecified systolic (congestive) heart failure (4) Hyponatremia: Status: Acute Category: Medical Code(s): E87.1 - Hypo-osmolality and hyponatremia (5) Atrial fibrillation: Status: Acute Qualifiers: Atrial fibrillation type: persistent (not longstanding) Qualified Code(s): I48.19 - Other persistent atrial fibrillation Category: Medical Code(s): I48.91 - Unspecified atrial fibrillation (6) HTN (hypertension): Status: Acute Qualifiers: Hypertension type: essential hypertension Qualified Code(s): I10 - Essential (primary) hypertension Category: Medical Code(s): I10 - Essential (primary) hypertension Plan Mat Perez is an 82 year old male with a past medical history of hypertension, hypothyroidism with history of thyroidectomy, atrial fibrillation, BPH, systolic heart failure who presented with shortness of breath and admitted on 12/27 with NSTEMI. #NSTEMI #GISELA #CHF #acute encephalopathy, metabolic #hypokalemia Echo obtained during this admission reve
--- NOTE | 2022-12-28 08:58 | EXP.CARD.PN ---
Subjective Subjective Date: 12/28/22 Time: 08:00 Principal diagnosis: A-fib, acute HFr EF Interval history: Confused this morning to place and time. Reports shortness of air has improved. Denies chest pain. Morning labs reviewed. Patient has a negative balance of 885mL. Exam Data for Last 24 hours Vital signs and Labs for Last 24 Hours: Temp Pulse Resp BP Pulse Ox O2 Del Method O2 Flow Rate 97.8 F 74 19 112/65 93 L Room Air 3 12/28/22 07:56 12/28/22 08:13 12/28/22 07:56 12/28/22 07:56 12/28/22 07:56 12/28/22 07:56 12/28/22 06:44 FiO2 30 12/27/22 01:58 Laboratory Results - last 24 hr 12/28/22 06:26: WBC 12.7 H, RBC 4.88, Hgb 14.3, Hct 44.7, MCV 91.5, MCH 29.3, MCHC 32.1, RDW 14.3, Plt Count 264, MPV 8.5, Neut % (Auto) 76.2, Lymph % (Auto) 15.3, [place] % (Auto) 7.0, Eos % (Auto) 1.2, Baso % (Auto) 0.4, Neut # (Auto) 9.6 H, Lymph # (Auto) 1.9, [place] # (Auto) 0.9, Eos # (Auto) 0.2, Baso # (Auto) 0.1, Sodium 134 L, Potassium 3.2 L D, Chloride 98, Carbon Dioxide 29, Anion Gap 10.2, BUN 32 H D, Creatinine 1.40 H D, Estimated Creat Clear 48, Estimated GFR 49 L, Est GFR ( Amer) 59 D, Glucose 96, Calcium 8.7, Magnesium 2.0, Total Bilirubin 1.0, AST 36, ALT 38 D, Alkaline Phosphatase 69, Total Protein 6.5, Albumin 3.4 L D, Globulin 3.1, Albumin/Globulin Ratio 1.1 I & O for Last 24 hours: Intake & Output 12/25/22 12/26/22 12/27/22 12/28/22 23:59 23:59 23:59 23:59 Intake Total 240 / 240 0 / 0 Output Total 3375 / 3375 350 / 350 Balance -3135 / -3135 -350 / -350 Weight 177 lb 15.314 oz 177 lb 15.314 oz Constitutional Constitutional: no acute distress *Routine Respiratory Exam Respiratory: Present CTA bilaterally and symmetric chest movement *Routine Cardiovascular Exam Cardiovascular: Present RRR, Normal S1 and Normal S2 Comments: A-fib rate controlled *Routine Abdominal Exam Abdominal: Present soft and normoactive bowel sounds; Absent tenderness *Routine Extremities Exam Extremities: Present full ROM and normal capillary refill; Absent edema *Routine Skin Exam Skin: Present intact, dry and warm Detailed Neck Exam: Thyroids Thyroid: Absent bruit Progress Note: A&P Assessment and plan (1) Acute non-ST elevation myocardial infarction (NSTEMI): Status: Acute (2) Dyspnea: Status: Acute (3) Systolic heart failure: Status: Acute (4) Hyponatremia: Status: Acute (5) Atrial fibrillation: Status: Acute (6) HTN (hypertension): Status: Acute Assessment and Plan Assessment and Plan for All Diagnoses:: Acute myocardial injury/Elevated trop -In the setting of afib with recent episode of RVR, currently rate controlled -EKG negative for acute ischemic changes -Denies chest pain 12/28/2022: Patient will be scheduled for outpatient left heart cath on January 03 for worsening EF and elevated troponin. Patient notified and is agreeable A-fib ChadVasc Score 4 -Currently rate controlled, continue carvedilol 25 mg twice daily -Previously not on oral anticoagulation due to patient refusing in office. Discussed risk versus benefits with patient he is agreeable to start oral anticoagulation now. -Start Xarelto 20 mg p.o. daily Acute on Chronic HFrEF NYHA II-III -Known ejection fraction of 40% previously -Repeat echo- EF LVEF 20%, mild AR, grade 2 diastolic dysfunction-noted to be in A-fib during study -proBNP 13,000 -Lasix 40 mg IV daily -Start Entresto 24-26mg BID, aldactone 25mg po daily and jardiance 10mg daily -Continue carvedilol 25 mg twice daily 12/28/2022: Shortness of air has improved. Patient denies orthopnea, no lower extremity edema noted. Denies chest pain. Patient will be fitted for LifeVest prior to discharge. Holding additional lasix New onset Delirium -Chest xray pending -UA pending -BC obtained -blood gas pending Worsening renal function -Creatinine 1.4 today, holding lasix Cardiology medications Carvedilol 25 mg p.o.
--- NOTE | 2022-12-28 10:22 | PC.NURSE ---
oxygen reduced from two litters to one litter and sats are at 93%. Pt. is confused this morning.
--- NOTE | 2022-12-28 10:26 | XR_ITS ---
FINAL REPORT CLINICAL HISTORY: soa COMPARISON: 12/27/2022 FINDINGS: SINGLE VIEW CHEST The heart size is normal. The mediastinum is normal. There is improvement of the bibasilar pulmonary opacities. There is no pneumothorax. IMPRESSION: Improved bibasilar pulmonary opacities. Reviewed, Interpreted and Dictated by Ethan Armenta III, MD Transcribed by French Jacobson Authenticated and . [facility]
[2022-12-28 11:32] LABS: Microscopic, Urine URINE MICROSCOPIC (MICROSCOPIC)
[2022-12-28 11:34] LABS: Appearance,Urine CLEAR (Clear); Blood, Urine 1+ (Negative); Color,Urine YELLOW (Yellow); Glucose,Urine (UA) 3+ (Negative); Ketones,Urine Negative (Negative); Leukocyte Esterase,Urine Negative (Negative); Nitrate,Urine Negative (Negative); PH,Urine 5.5 (5.0-8.5); Protein,Urine 1+ (Negative); Specific Gravity, Urine >= 1.030 (1.005-1.030); Urobilinogen,Urine 0.2 EU/dl (0.2)
[2022-12-28 11:51] LABS: ABG Base Excess 1.4 mmol/L (-2.4-2.3); ABG HCO3 25.1 mmhg (22.0-26.0); ABG Oxygen Saturation 96 % (90-100); ABG PCO2 35.5 mmhg (35.0-45.0); ABG PH 7.47 mmol/L (7.35-7.45); ABG PO2 82.4 mmhg (80-100); ABG TCO2 26.2 mmhg (23-27)
--- NOTE | 2022-12-28 11:51 | DIET.NUTRFU ---
RD reviewed diet during rounds today, provider requested cardiac tray be started. Kitchen notified
[2022-12-28 11:53] LABS: Allen's Test Acceptable; Oxygen 2.5L %; Source Left Radial
[2022-12-28 11:58] LABS: Bilirubin,Urine 1+ (Negative)
[2022-12-28 13:06] LABS: Squamous Epithelial Cell,Urine Occasional #/hpf (0-5)
[2022-12-28 15:56] LABS: Anion Gap 11.1 mEq/L (5-15); Blood Urea Nitrogen 33 mg/dl (9-20); Calcium 8.2 mg/dl (8.4-10.2); Carbon Dioxide 30 mmol/L (22.0-30.0); Chloride 99 mmol/L (98-107); Creatinine Clearance Estimated 42 mL/min (50-200); Estimated Glomerular Filt Rate 42 ml/min (>60); GFR (African American) 51 ML/MIN (>60); Glucose 152 mg/dl (74-100); Potassium 4.1 mmoL/L (3.5-5.1); Sodium 136 mmol/L (136-145)
--- NOTE | 2022-12-28 16:24 | PC.NURSE ---
Pt. aox 2 with some confusion noted, now weaned off 2-3 L sats at 95% on RA, up with assistance times one, family present in the room, pt's potassium today was 3.2 and he got 40 p.o. and two runs of potassium, potassium now 4.1.
[2022-12-29] VITALS (8 sets, daily range): BP systolic 111–127; BP diastolic 60–84; PULSE 41–90; RESP 16–22; TEMP 36.3–37.1; O2SAT 91–96; BMI 25.2
--- NOTE | 2022-12-29 05:17 | PC.NURSE ---
no acute changes t/o the shift. RA, Armand&Ox4, bed locked and in lowest position, call light in reach. family member at bedside.
[2022-12-29 06:56] LABS: Basophils # 0.1 K/mm3 (0-0.2); Basophils % 0.4 % (0.1-2.0); Eosinophils # 0.2 K/mm3 (0.0-0.4); Eosinophils % 1.4 % (0.1-12.0); Hematocrit 41.3 % (42.0-52.0); Hemoglobin 13.5 g/dL (14.1-18.0); Lymphocytes # 2.3 K/mm3 (0.7-4.5); Lymphocytes % 19.5 % (10-50); Mean Corpuscular HGB Conc 32.8 g/dL (31.8-35.4); Mean Corpuscular Hemoglobin 29.4 pg (27.0-31.2); Mean Corpuscular Volume 89.7 fl (80-94); Mean Platelet Volume 8.3 fl (7.4-10.4); Monocytes % 8.5 % (1.7-9.3); Neutrophils # 8.4 K/mm3 (1.8-7.8); Neutrophils % 70.1 % (37.0-80.0); Platelet Count 307 K/mm3 (142-424); Red Blood Count 4.61 M/mm3 (4.60-6.20); Red Cell Distribution Width 14.1 % (11.5-17.5)
[2022-12-29 06:59] LABS: Chloride 101 mmol/L (98-107); Potassium 3.9 mmoL/L (3.5-5.1); Sodium 135 mmol/L (136-145)
[2022-12-29 07:02] LABS: Anion Gap 8.9 mEq/L (5-15); Blood Urea Nitrogen 30 mg/dl (9-20); Carbon Dioxide 29 mmol/L (22.0-30.0); Creatinine Clearance Estimated 60 mL/min (50-200); Estimated Glomerular Filt Rate 64 ml/min (>60); GFR (African American) 78 ML/MIN (>60)
[2022-12-29 07:03] LABS: Calcium 8.6 mg/dl (8.4-10.2); Glucose 104 mg/dl (74-100); Magnesium 2.1 mg/dl (1.6-2.3)
--- NOTE | 2022-12-29 09:05 | EXP.CARD.PN ---
Subjective Subjective Date: 12/29/22 Time: 08:00 Principal diagnosis: A-fib, acute HFr EF Interval history: Doing well this morning, denies chest pain or shortness of breath. Alert and oriented x4. Morning labs reviewed. Exam Data for Last 24 hours Vital signs and Labs for Last 24 Hours: Temp Pulse Resp BP Pulse Ox O2 Del Method O2 Flow Rate 97.4 F L 61 17 127/76 96 Room Air 2 12/29/22 07:51 12/29/22 07:51 12/29/22 07:51 12/29/22 07:51 12/29/22 07:51 12/29/22 08:55 12/28/22 13:00 FiO2 30 12/27/22 01:58 Laboratory Results - last 24 hr 12/28/22 10:36: Specimen Source Left radial, O2 % 2.5l, ABG pH 7.47 H, ABG pCO2 35.5, ABG pO2 82.4, ABG HCO3 25.1, ABG Total CO2 26.2, ABG O2 Saturation 96, ABG Base Excess 1.4, Tono Test Acceptable 12/28/22 11:22: Urine Color Yellow, Urine Appearance Clear, Urine pH 5.5, Ur Specific [place] >= 1.030, Urine Protein 1+, Urine Glucose (UA) 3+, Urine Ketones Negative, Urine Blood 1+, Urine Nitrate Negative, Urine Bilirubin 1+ A, Urine Urobilinogen 0.2, Ur Leukocyte Esterase Negative, Urine RBC 10-20, Urine WBC 5-10, Ur Squamous Epith Cells Occasional, Urine Bacteria None 12/28/22 15:30: Sodium 136, Potassium 4.1 D, Chloride 99, Carbon Dioxide 30, Anion Gap 11.1, BUN 33 H, Creatinine 1.60 H, Estimated Creat Clear 42, Estimated GFR 42 L, Est GFR ( Amer) 51 L, Glucose 152 H D, Calcium 8.2 L 12/29/22 06:23: WBC 12.0 H, RBC 4.61, Hgb 13.5 L, Hct 41.3 L, MCV 89.7, MCH 29.4, MCHC 32.8, RDW 14.1, Plt Count 307, MPV 8.3, Neut % (Auto) 70.1, Lymph % (Auto) 19.5, [place] % (Auto) 8.5, Eos % (Auto) 1.4, Baso % (Auto) 0.4, Neut # (Auto) 8.4 H, Lymph # (Auto) 2.3, [place] # (Auto) 1.0, Eos # (Auto) 0.2, Baso # (Auto) 0.1, Sodium 135 L, Potassium 3.9, Chloride 101, Carbon Dioxide 29, Anion Gap 8.9, BUN 30 H, Creatinine 1.10 D, Estimated Creat Clear 60, Estimated GFR 64, Est GFR ( Amer) 78 D, Glucose 104 H D, Calcium 8.6, Magnesium 2.1 I & O for Last 24 hours: Intake & Output 12/26/22 12/27/22 12/28/22 12/29/22 23:59 23:59 23:59 23:59 Intake Total 240 / 240 830 / 1086 316 / 316 Output Total 3375 / 3375 950 / 1100 875 / 875 Balance -3135 / -3135 -120 / -14 -559 / -559 Weight 177 lb 15.314 oz 177 lb 15.314 oz 175 lb 14.4 oz Constitutional Constitutional: no acute distress *Routine Respiratory Exam Respiratory: Present CTA bilaterally and symmetric chest movement *Routine Cardiovascular Exam Cardiovascular: Present RRR, Normal S1 and Normal S2 Comments: A-fib rate controlled *Routine Abdominal Exam Abdominal: Present soft and normoactive bowel sounds; Absent tenderness *Routine Extremities Exam Extremities: Present full ROM and normal capillary refill; Absent edema *Routine Skin Exam Skin: Present intact, dry and warm Detailed Neck Exam: Thyroids Thyroid: Absent bruit Progress Note: A&P Assessment and plan (1) Acute non-ST elevation myocardial infarction (NSTEMI): Status: Acute (2) Dyspnea: Status: Acute (3) Systolic heart failure: Status: Acute (4) Hyponatremia: Status: Acute (5) Atrial fibrillation: Status: Acute (6) HTN (hypertension): Status: Acute Assessment and Plan Assessment and Plan for All Diagnoses:: Acute myocardial injury/Elevated trop -In the setting of afib with recent episode of RVR, currently rate controlled -EKG negative for acute ischemic changes -Denies chest pain -[facility] scheduled for January 03 A-fib ChadVasc Score 4 -Currently rate controlled, continue carvedilol 25 mg twice daily -Previously not on oral anticoagulation due to patient refusing in office. Discussed risk versus benefits with patient he is agreeable to start oral anticoagulation now. -Continue Xarelto 20 mg p.o. daily Acute on Chronic HFrEF NYHA [id number] -previous ejection fraction of 40% in 2017 -Repeat echo- EF LVEF 20%, mild AR, grade 2 diastolic dysfunction-noted to be in A-fib during study -proBNP 13,000 on admission
--- NOTE | 2022-12-29 13:29 | EXP.DC.SUM ---
General Admission date:: 12/27/22 Discharge date: 12/29/22 HPI HPI HPI: This is a 82-year-old male with PMHx of hypertension, A-fib, heart failure who presented with worsening shortness of breath. Patient was seen yesterday in the ED and was noted to have an NSTEMI with a troponin of 0.9. Patient left AMA at that time. He reports that at home he has been unable to get out of bed due to dyspnea, has been continuing to feel worse. Now audibly wheezing. Reports no fever chills or infectious symptoms. patient returned to ER. admitted for further management. Hospital Course Hospital Course Hospital Course: Mat Perez is an 82 year old male with a past medical history of hypertension, hypothyroidism with history of thyroidectomy, atrial fibrillation, BPH, atrial fibrillation and systolic heart failure who presented with shortness of breath and admitted on 12/27 with NSTEMI. #NSTEMI #GISELA, resolved #HFrEF #acute encephalopathy, metabolic, resolved #hypokalemia, potassium repleted Troponin levels trended 0.86 -> 0.8. Echo obtained during this admission revealed LVEF 20%, mild AR, grade 2 diastolic dysfunction. He was provided a lifevest prior to discharge. Cardiology was consulted and started many new medications including lasix, spironolactone, Entresto, jardiance, xarelto; he is to continue his carvedilol. He is scheduled for a left heart catheterization on 01/03 and will follow up in cardiology clinic in one week. Exam Data for Last 24 hours Vital signs and Labs for Last 24 Hours: Temp Pulse Resp BP Pulse Ox O2 Del Method O2 Flow Rate 97.9 F 58 L 16 113/67 91 L Room Air 2 12/29/22 11:22 12/29/22 11:22 12/29/22 11:22 12/29/22 11:22 12/29/22 11:22 12/29/22 13:00 12/28/22 13:00 FiO2 30 12/27/22 01:58 Laboratory Results - last 24 hr 12/28/22 15:30: Sodium 136, Potassium 4.1 D, Chloride 99, Carbon Dioxide 30, Anion Gap 11.1, BUN 33 H, Creatinine 1.60 H, Estimated Creat Clear 42, Estimated GFR 42 L, Est GFR ( Amer) 51 L, Glucose 152 H D, Calcium 8.2 L 12/29/22 06:23: WBC 12.0 H, RBC 4.61, Hgb 13.5 L, Hct 41.3 L, MCV 89.7, MCH 29.4, MCHC 32.8, RDW 14.1, Plt Count 307, MPV 8.3, Neut % (Auto) 70.1, Lymph % (Auto) 19.5, [place] % (Auto) 8.5, Eos % (Auto) 1.4, Baso % (Auto) 0.4, Neut # (Auto) 8.4 H, Lymph # (Auto) 2.3, [place] # (Auto) 1.0, Eos # (Auto) 0.2, Baso # (Auto) 0.1, Sodium 135 L, Potassium 3.9, Chloride 101, Carbon Dioxide 29, Anion Gap 8.9, BUN 30 H, Creatinine 1.10 D, Estimated Creat Clear 60, Estimated GFR 64, Est GFR ( Amer) 78 D, Glucose 104 H D, Calcium 8.6, Magnesium 2.1 I & O for Last 24 hours: Intake & Output 12/26/22 12/27/22 12/28/22 12/29/22 23:59 23:59 23:59 23:59 Intake Total 240 / 240 830 / 1086 556 / 556 Output Total 3375 / 3375 950 / 1100 1025 / 1025 Balance -3135 / -3135 -120 / -14 -469 / -469 Weight 80.72 kg 80.72 kg 79.787 kg Constitutional Constitutional: no acute distress *Routine HEENT Exam Head: Present normocephalic Eye: Present EOMI and PERRL ENT: Present mucous membranes moist *Routine Neck Exam Neck: Present supple; Absent lymphadenopathy *Routine Respiratory Exam Respiratory: Present CTA bilaterally *Routine Cardiovascular Exam Cardiovascular: Present irregularly irregular *Routine Abdominal Exam Abdominal: Present soft and normoactive bowel sounds; Absent tenderness *Routine Extremities Exam Extremities: Absent cyanosis, clubbing or edema *Routine Skin Exam Skin: Present warm; Absent rash *Routine Neurological Exam Neurological: Present alert and moving all extremities Results Data Completed and Pending Labs on day of discharge: Labs from last 24 hours 12/29/22 12/28/22 06:23 15:30 WBC 12.0 H RBC 4.61 Hgb 13.5 L Hct 41.3 L MCV 89.7 MCH 29.4 MCHC 32.8 RDW 14.1 Plt Count 307 MPV 8.3 Neut % (Auto) 70.1 Lymph % (Auto) 19.5 [place] % (Auto) 8.5 Eos % (Auto) 1.4 Baso % (Auto) 0.4 Neut # (Auto) 8.4 H
--- NOTE | 2022-12-29 13:55 | HMH.PHAINT1 ---
Pharmacy Intervention Comments: Discharge medications were discussed with patient and patient's . -Entresto (discussed dizziness) -Furosemide (discussed increased urination) -Spironolactone (discussed increased urination and increased potassium) -Xarelto (discussed bleeding and bruising) -jardiance (discussed increased urination and UTI) Juanjo Street, PharmD student
--- NOTE | 2022-12-30 13:10 | CARE MANAGER ---
Called and spoke with patient and his regarding recent discharge. 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 I went over scheduled f/u appts and they had no questions or concerns at time of call.
== END 2022-12-29 18:02 | disposition home or self-care (01) | DRG 280 ==
LOC: ER 00:44 → 2ND 01:56
PROVIDERS: Internal Medicine; Nurse Practitioner; Nurse Practitioner Family; Admitting Provider Internal Medicine Adolescent Medicine; Emergency Provider Emergency Medicine; PCP Emergency Medicine; Visit Provider Internal Medicine Adolescent Medicine
DX: I21.4 Non-ST elevation (NSTEMI) myocardial infarction (principal); G93.41 Metabolic encephalopathy; I50.23 Acute on chronic systolic (congestive) heart failure; E87.1 Hypo-osmolality and hyponatremia; I48.19 Other persistent atrial fibrillation; I11.0 Hypertensive heart disease with heart failure; E87.6 Hypokalemia
CPT/HCPCS: 36415; 71045; 80048; 80053; 81001; 82803; 83735; 83880; 84436; 84443; 84484; 85025; 87040; 93005; 93306; 94660; 99285; 99291

== ENCOUNTER 2023-12-29 18:18 | Outpatient (CLI) | payer MEDICARE, BC, SELFPAY ==
[2023-12-29 18:25] LABS: Basophils # 0.1 K/mm3 (0-0.2); Eosinophils # 0.1 K/mm3 (0.0-0.4); Eosinophils % 1.6 % (0.1-12.0); Hematocrit 39.5 % (42.0-52.0); Hemoglobin 12.8 g/dL (14.1-18.0); Lymphocytes # 2.2 K/mm3 (0.7-4.5); Lymphocytes % 31.1 % (10-50); Mean Corpuscular HGB Conc 32.4 g/dL (31.8-35.4); Mean Corpuscular Hemoglobin 31.7 pg (27.0-31.2); Mean Corpuscular Volume 97.7 fl (80-94); Mean Platelet Volume 10.8 fl (7.4-10.4); Monocytes # 0.5 K/mm3 (0.1-1.0); Monocytes % 7.3 % (1.7-9.3); Neutrophils # 4.1 K/mm3 (1.8-7.8); Neutrophils % 59.2 % (37.0-80.0); Platelet Count 435 K/mm3 (142-424); Red Blood Count 4.04 M/mm3 (4.60-6.20); Red Cell Distribution Width 14.8 % (11.5-17.5)
[2023-12-29 18:50] LABS: Alanine Aminotransferase 29 U/L (12-78); Albumin Level 3.3 g/dl (3.5-5.0); Albumin/Globulin Ratio 1.1 (1.1-1.8); Alkaline Phosphatase 68 U/L (38-126); Anion Gap 9.6 mEq/L (5-15); Aspartate Amino Transferase 30 U/L (17-59); Bilirubin,Total 0.4 mg/dl (0.2-1.3); Blood Urea Nitrogen 19 mg/dl (9-20); Calcium 8.6 mg/dl (8.4-10.2); Carbon Dioxide 29 mmol/L (22.0-30.0); Chloride 107 mmol/L (98-107); Estimated Glomerular Filt Rate 81 ml/min (>60); GFR (African American) 98 ML/MIN (>60); Glucose 99 mg/dl (74-100); Potassium 4.6 mmoL/L (3.5-5.1); Sodium 141 mmol/L (136-145); Total Protein,Serum 6.3 g/dl (6.3-8.2)
[2023-12-29 19:20] LABS: Prostate Specific Ag Screen 32.6 ng/ml (0.0-4.0)
[2023-12-29 19:48] LABS: 25-OH Vitamin D, Total 82.7 ng/mL (30-100)
[2023-12-29 20:14] LABS: Vitamin B12 600 pg/mL (239-931)
[2023-12-29 21:56] LABS: Hemoglobin A1C 5.3 % (4.0-6.0)
[2023-12-31 04:39] LABS: PSA, Free 1.32 ng/mL; Prostate Specific Ag 33.6 ng/mL (0.0-4.0)
== END 2023-12-29 23:59 | disposition home or self-care (01) ==
LOC: LAB.DROPOF 18:19
PROVIDERS: PCP Internal Medicine; Visit Provider Internal Medicine
DX: Z12.5 Encounter for screening for malignant neoplasm of prostate (principal); I25.10 Atherosclerotic heart disease of native coronary artery without angina pectoris; I10 Essential (primary) hypertension; R73.03 Prediabetes; E55.9 Vitamin D deficiency, unspecified; N42.9 Disorder of prostate, unspecified; Z68.32 Body mass index [BMI] 32.0-32.9, adult; E66.9 Obesity, unspecified
CPT/HCPCS: 80053; 82306; 82607; 83036; 84153; 84154; 84443; 85025; G0103

== ENCOUNTER 2024-03-31 14:43 | Emergency (ER) | payer MEDICARE, BC, SELFPAY ==
[2024-03-31 14:59] VITALS: BP 165/79; PULSE 69; RESP 18; TEMP 36.4; O2SAT 96; BMI 26.5
--- NOTE | 2024-03-31 15:44 | EXP.UTC ---
Discharge Plan Disposition Patient Disposition: Home, Self-Care Condition: Good Prescriptions Prescriptions: New azithromycin 250 mg tablet See Rx Instructions .ROUTE .COMPLEX Qty: 6 0RF Rx Instructions: For 250 mg dose pack: take 500 mg today (day 1), then 250 mg for 4 days (days 2-5) benzonatate 100 mg capsule 100 mg PO TID PRN (Reason: cough) Qty: 30 0RF No Action amlodipine 2.5 mg tablet 2.5 mg PO BID 90 Days Qty: 180 4RF carvedilol [Coreg] 12.5 mg tablet 12.5 mg PO BID 90 Days Qty: 180 4RF Rx Instructions: must administer with a meal/food meclizine 25 mg Tablet,Chewable 25 mg PO BID Referrals Follow up/Referrals: Boris Kauffman DO [Primary Care Provider] - See instructions Activity Restrictions/Add. Instructions Additional Instructions/Restrictions: Take medication as prescribed. Increase fluids and rest. Follow up with PCP next week. If you become short of air return to the ER. Clinical Impressions Clinical Impression: Acute lower respiratory infection Instructions Patient Instructions: Acute Bronchitis Print Language Print Language: [place] Discharge ED Provider: Kim Spence [facility] HPI General Stated complaint: cough, sneezing, congestion Mode of Arrival: Ambulatory Source of Information: Patient Time Seen by Provider: 03/31/24 15:43 Description of Symptoms (Recalled from Triage Doc. by RN): CHEST CONGESTION, ITCHY EYES, SNEEZING AND COUGHING X 2 WEEKS HEENT Symptoms (Recalled from RN notes): Yes Resp Symptoms (Recalled from RN notes): Yes Skin Symptoms (Recalled from RN notes): No MS Symptoms (Recalled from RN notes): No Functional Status (Recalled from RN notes): WNL Related Data Home Medications ?Medication ?Instructions ?Recorded ?Confirmed meclizine 25 mg chewable tablet 25 mg PO BID 03/31/24 03/31/24 Previous Rx's ?Medication ?Instructions ?Recorded amlodipine 2.5 mg tablet 2.5 mg PO BID 90 days #180 tabs 03/16/24 carvedilol 12.5 mg tablet (Coreg) 12.5 mg PO BID 90 days #180 tabs 03/16/24 azithromycin 250 mg tablet See Rx Instructions PO .COMPLEX #6 03/31/24 tabs benzonatate 100 mg capsule 100 mg PO TID PRN cough #30 caps 03/31/24 Allergies Allergy/AdvReac Type Severity Reaction Status Date / Time meloxicam [MELOXICAM] Allergy Intermediate I-RASH Verified 12/29/23 14:05 naproxen Allergy Unknown Verified 12/29/23 14:05 bisoprolol AdvReac Mild Palpitation Verified 12/29/23 14:05 s metoprolol AdvReac Palpitation Verified 12/29/23 14:05 s Worker's Comp Is this a Worker's Comp case?: No [facility] Disclaimer: The information contained in this section may have been updated after the patient was seen, as this information can be updated by other users. Medical History Aortic insufficiency Grade II diastolic dysfunction Dyspnea Atrial fibrillation with rapid ventricular response Social History Smoking Status: Never smoker alcohol intake: never counseling provided: none substance use type: denies use current occupational status: employed Travel in the last 8 weeks: None household members: spouse housing: house ROS Obtained: Yes All systems reviewed & no additional complaints except as documented Constitutional Constitutional: Reports system reviewed and no additional complaints, except as documented and Reports headache(s) Eyes Eyes: Reports system reviewed and no additional complaints, except as documented ENT Ears, Nose, Mouth, and Throat: Reports system reviewed and no additional complaints, except as documented, Reports headache(s) and Reports nasal discharge Cardiovascular Cardiovascular: Reports system reviewed and no additional complaints, except as documented Respiratory Respiratory: Reports system reviewed and no additional complaints, except as documented, Reports change in phlegm color and Reports cough with sputum production Gastrointestinal Gastrointestingal: Reports system reviewed and no additional complaints, except as documented Genitourinary Male Genitourinary: Reports system reviewed and no additional complaints, except as documented Musculoskeletal Musculoskeletal: Reports system reviewed and no additional complaints, except as documented Integumentary/Breasts Skin/Breast: Reports system reviewed and no additional complaints, except as documented Neurologic Neurologic: Reports system reviewed and no additional complaints, except as documented and Reports headache(s) Endocrine Endocrine: Reports system reviewed and no additional complaints, except as documented Hematologic/Lymphatic Henatologic/Lymphatic: Reports system reviewed and no additional complaints, except as documented Allergic/Immunologic Allergic/Immunologic: Reports system reviewed and no additional complaints, except as documented Physical Exam General General appearance: alert and in no apparent distress Head Head exam: atraumatic and normocephalic Eye Eye exam: Present normal appearance ENT ENT exam: Present mucous membranes moist Expanded ENT Exam External ear exam: Present normal external inspection Nasal speculum exam: Bilateral: other (clear drainage) Mouth exam: Present normal external inspection Teeth exam: Present normal inspection Throat exam: Present normal inspection Neck Neck exam: Present normal inspection Chest Chest inspection: Present normal inspection and symmetric chest wall rise Respiratory Respiratory exam: Present other (course sounds throughout) Expanded Respiratory Exam Location: Right: rhonchi and Lower: rhonchi Cardiovascular Cardiovascular exam: Present regular rate and normal rhythm Abdominal Exam Abdominal exam: Present soft and normal bowel sounds Extremities Exam Extremities exam: Present normal inspection Back Exam Back exam: Present normal inspection Neurological Exam Neurological exam: Present alert and oriented X3 Psychiatric Psychiatric exam: Present normal affect and normal mood Skin Skin exam: Present warm, dry and intact Lymphatic Lymphatic Findings: no adenopathy Medical Decision Making Medical Records Screening: Per USPSTF and CDC recommendations, given the prevalence of disease in our region, it is our hospital?s policy to screen for HIV and viral Hepatitis for all patients aged 18 and over and those with ongoing risk factors. Arpan Inquiry Pt receiving controlled substance: No Arpan was queried for this patient: No Vital Signs: 03/31/24 14:59 Temperature 97.6 F Temperature Source Oral Pulse Rate [Left Radial] 69 Respiratory Rate 18 Blood Pressure [Left Arm] 165/79 H Blood Pressure Mean [Left Arm] 107 02 Sat by Pulse Oximetry 96
[2024-03-31 16:00] VITALS: BP 165/79; PULSE 69; RESP 18; TEMP 36.4
== END 2024-03-31 16:01 | disposition home or self-care (01) ==
PROVIDERS: Emergency Provider Nurse Practitioner Family; PCP Internal Medicine
DX: J06.9 Acute upper respiratory infection, unspecified (principal)
CPT/HCPCS: 99213; G0381

== ENCOUNTER 2024-09-05 13:00 | Outpatient (CLI) | payer MEDICARE, BC, SELFPAY ==
--- NOTE | 2024-09-05 13:05 | XR_ITS ---
FINAL REPORT CLINICAL HISTORY: cough x 1 week COMPARISON: 12/28/2022 FINDINGS: There is mild atelectasis or scar in the right lung base. The right lung is clear. There is no evidence of effusion or other pleural disease. There is widening of the mediastinum related to enlarged thoracic aorta. The cardiac silhouette is unremarkable. IMPRESSION: Chronic changes left lung base. Chronic thoracic aortic enlargement. Nonemergent CT may be considered. Reviewed, Interpreted and Dictated by Pedro Acosta MD Transcribed by Loren Marks Authenticated and . [facility]
== END 2024-09-05 23:59 | disposition home or self-care (01) ==
LOC: RAD 13:01
PROVIDERS: Visit Provider Student in an Organized Health Care Education/Training Program
DX: R05.9 Cough, unspecified (principal)
CPT/HCPCS: 71046